=== PATIENT | female | born 1960 | race Caucasian/White ===

== ENCOUNTER 2017-04-20 13:37 | Emergency (ER) | payer OTHER ==
[~2017-04-20] VITALS: Ht 162.5 cm; Wt 59.9 kg
[~2017-04-20 13:37] MED LIST: ANAPROX DS550 MG PO; ARMOUR THYROID15 MG PO; ARMOUR THYROID30 MG PO; ARMOUR THYROID60 MG PO; ATIVAN1 MG PO; AVONEX30 MCG/0.5 MR; Amitriptyline H10 MG PO; BACTRIM DS 8001 TA1 PO; BANOPHEN50 MG PO; BENADRYL ALLERG25 M5 PO; CALCIUM W/VITAM1 TAB PO; CELEXA10 MG PO; CITALOPRAM20 MG PO; CLARITIN10 MG PO; CORDROL20 MG PO; Copaxone 20M20 MG/ML IM; DECADRON4 M1 PO; DICLOFENAC SOD75 MG PO; FENTANYL12 MCG/HR TD; FIORINAL 325 MG1 CAP PO; FLAGYL500 MG PO; FLEXERIL10 MG PO; GABAPENTIN300 MG PO; GABARONE300 MG PO; HYDROMORPHONE2 MG PO; KEFLEX500 MG PO; LEVSIN0.125 M1 SL; LOMOTIL 0.025 M1 TA1 PO; LOMOTIL 0.025 M1 TAB PO; LYRICA75 M1 PO; MIACALCIN SPRAY1 EA NAS; MIACALCIN200 IU/ACT NS; MOTRIN800 MG PO; NAPROSYN500 MG PO; NEURONTIN800 MG PO; OMEPRAZOLE20 M2 PO; OXYBUTYNIN10 MG PO; OXYCODONE HCL10 M1 PO; PERCOCET 325 MG1 TA3 PO; PHENERGAN25 MG RC; PREDNISONE20 M1 PO; PREDNISONE5 MG PO; PRILOSEC40 MG PO; PROPRANOLOL HCL40 M1 PO; SYNTHROID,LEVO75 MCG PO; Synthroid,Lev100 MCG PO; TECFIDERA240 M1 PO; TRAMADOL HCL50 MG PO; VICODIN 500 MG-1 TAB PO; VITAMIN B12 1541 TAB PO; VITAMIN D400 UNI1 PO; VOLTAREN11 TP; VOLTAREN75 MG PO; ZANTAC150 MG PO; ZOFRAN ODT4 MG SL; ZOFRAN4 MG PO
[2017-04-20] MEDS ORDERED: MORPHINE SULFAT15 M7 PO (13:54)
[2017-04-20] MEDS ORDERED: ACETAMINOPHEN/O1 TA1 PO (13:55)
[2017-04-20 13:56] VITALS: BP 123/83
[2017-04-20 14:26] LABS: BILIRUBIN 1+ (NEGATIVE); BLOOD NEGATIVE (NEGATIVE); CLARITY SL CLOUDY (CLEAR); COLOR YELLOW (YELLOW); GLUCOSE NEGATIVE (NEGATIVE); KETONE NEGATIVE (NEGATIVE); LEUKO ESTERASE NEGATIVE (NEGATIVE); NITRITE NEGATIVE (NEGATIVE); PROTEIN NEGATIVE (NEGATIVE); SPECIFIC GRAVITY 1.025 (1.005-1.030); UROBILINOGEN 0.2 E.U./dl (0.2-1.0)
[2017-04-20 14:34] LABS: BACTERIA 2+; RBC 0-2 rbc/hpf (0-2); URINE REFLEX COMMENT YES (NO)
[2017-04-20] MEDS ORDERED: PYRIDIUM100 MG PO (14:42)
== END 2017-04-20 14:53 | disposition home or self-care (01) ==
LOC: ED 13:37
PROVIDERS: Nurse Practitioner Family
DX: R10.9 Unspecified abdominal pain (principal); E03.9 Hypothyroidism, unspecified; M48.00 Spinal stenosis, site unspecified; G89.29 Other chronic pain; G62.9 Polyneuropathy, unspecified; Z90.711 Acquired absence of uterus with remaining cervical stump; Z90.89 Acquired absence of other organs; Z79.899 Other long term (current) drug therapy; Z88.5 Allergy status to narcotic agent; Z88.6 Allergy status to analgesic agent; Z91.030 Bee allergy status; Z88.0 Allergy status to penicillin; Z88.4 Allergy status to anesthetic agent

== ENCOUNTER → 2017-06-20 | Outpatient (CLI) | payer OTHER ==
[~2017-06-20] MED LIST changes: +ACETAMINOPHEN/O1 TA1 PO; +MORPHINE SULFAT15 M7 PO; +PYRIDIUM100 MG PO
== END | disposition home or self-care (01) ==
LOC: RAD 13:00
DX: Z13.820 Encounter for screening for osteoporosis (principal); N95.9 Unspecified menopausal and perimenopausal disorder; M81.0 Age-related osteoporosis without current pathological fracture

== ENCOUNTER → 2017-07-14 | Outpatient (CLI) | payer OTHER | END | disposition home or self-care (01) | LOC: CT 12:53 | DX: Z01.818 Encounter for other preprocedural examination (principal); M48.02 Spinal stenosis, cervical region; M50.222 Other cervical disc displacement at C5-C6 level; M50.223 Other cervical disc displacement at C6-C7 level; M47.892 Other spondylosis, cervical region; M51.24 Other intervertebral disc displacement, thoracic region; N20.0 Calculus of kidney; M47.894 Other spondylosis, thoracic region; M48.06 Spinal stenosis, lumbar region; M51.26 Other intervertebral disc displacement, lumbar region; J43.2 Centrilobular emphysema; J84.10 Pulmonary fibrosis, unspecified; M25.78 Osteophyte, vertebrae; Z90.49 Acquired absence of other specified parts of digestive tract; Z90.710 Acquired absence of both cervix and uterus ==

== ENCOUNTER 2017-07-19 13:20 | Emergency (ER) | payer OTHER ==
[~2017-07-19] VITALS: Ht 165.1 cm; Wt 61.2 kg
[2017-07-19 13:23] VITALS: BP 140/90
[2017-07-19] MEDS ORDERED: BACTRIM 400-801 EACH PO (14:01)
[2017-07-20] MEDS ORDERED: VALTREX1000 MG PO (16:48)
[2017-07-20] MEDS ORDERED: PREDNISONE50 MG PO (16:48)
== END 2017-07-19 14:09 | disposition home or self-care (01) ==
LOC: ED 13:20
DX: L73.8 Other specified follicular disorders (principal); L02.11 Cutaneous abscess of neck; G89.29 Other chronic pain; F17.200 Nicotine dependence, unspecified, uncomplicated; Z90.711 Acquired absence of uterus with remaining cervical stump; Z98.890 Other specified postprocedural states; Z90.89 Acquired absence of other organs; Z79.899 Other long term (current) drug therapy; Z88.0 Allergy status to penicillin; Z88.5 Allergy status to narcotic agent; Z91.030 Bee allergy status; Z88.6 Allergy status to analgesic agent

== ENCOUNTER 2017-07-20 09:39 | Emergency (ER) | payer OTHER ==
[~2017-07-20] VITALS: Ht 165.1 cm; Wt 61.2 kg
[~2017-07-20 09:39] MED LIST changes: +BACTRIM 400-801 EACH PO
[2017-07-20 09:52] VITALS: BP 131/87
[2017-07-20 10:28] LABS: BASO % 0.3 % (0.0-1.0); EOS # 0.2 10*3/uL (0.0-0.4); EOS % 1.4 % (1.0-4.0); HEMATOCRIT 46.3 % (37.0-47.0); LYMPH # 1.3 10*3/uL (1.3-4.4); LYMPH % 10.5 % (27.0-41.0); MEAN CELL VOLUME 97.3 fl (81.0-99.0); MEAN CORPUSCULAR HGB 31.5 pg (27.0-31.0); MEAN CORPUSCULAR HGB CONC 32.4 g/dl (33.0-37.0); MEAN PLATELET VOLUME 9.7 fl (9.6-12.3); MONO # 1.1 10*3/uL (0.1-1.0); MONO % 8.4 % (3.0-9.0); NEUT % 78.9 % (47.0-73.0); PLATELET COUNT AUTOMATED 241 10*3/uL (130-400); RED BLOOD COUNT 4.76 10*6/uL (4.10-5.10); RED CELL DISTRI WIDTH 13.9 % (0-14.5); WHITE BLOOD COUNT 12.7 10*3/uL (4.8-10.8)
[2017-07-20 10:36] LABS: ACT PARTIAL THROMBO TIME 26.9 SECONDS (20.8-31.5); INTERNATIONAL NORM RATIO 0.9 (2.0-3.5)
[2017-07-20 10:44] LABS: ALBUMIN 3.7 gm/dl (3.1-4.5); ALKALINE PHOSPHATASE 108 U/L (45-117); BUN 8 mg/dl (7-24); CHLORIDE 105 mmol/L (98-107); CKMB < 0.5 ng/ml (0.5-3.6); CPK 50 U/L (26-192); CREATININE 0.77 mg/dL (0.55-1.02); LIPASE 130 U/L (73-393); MAGNESIUM 2.3 mg/dL (1.5-2.1); POTASSIUM 4.4 mmol/L (3.5-5.1); SGOT/AST 13 IU/L (3-35); SGPT/ALT 16 U/L (12-78); SODIUM 139 mmol/L (136-145); TOTAL PROTEIN 7.5 gm/dL (6.4-8.2); TROPONIN I < 0.015 ng/ml (<0.045)
[2017-07-20] MEDS ORDERED: PREDNISONE50 MG PO (16:48)
[2017-07-20] MEDS ORDERED: VALTREX1000 MG PO (16:48)
== END 2017-07-20 17:29 | disposition home or self-care (01) ==
LOC: ED 09:39
PROVIDERS: Emergency Medicine
DX: B02.8 Zoster with other complications (principal); H10.33 Unspecified acute conjunctivitis, bilateral; G89.29 Other chronic pain; E03.9 Hypothyroidism, unspecified; G35 Multiple sclerosis; G62.9 Polyneuropathy, unspecified; M48.00 Spinal stenosis, site unspecified; G56.03 Carpal tunnel syndrome, bilateral upper limbs; F17.200 Nicotine dependence, unspecified, uncomplicated; Z90.711 Acquired absence of uterus with remaining cervical stump; Z98.890 Other specified postprocedural states; Z79.899 Other long term (current) drug therapy; Z88.0 Allergy status to penicillin; Z88.5 Allergy status to narcotic agent; Z91.030 Bee allergy status; Z88.6 Allergy status to analgesic agent

== ENCOUNTER → 2017-09-01 | Outpatient (CLI) | payer OTHER ==
[~2017-09-01] MED LIST changes: +PREDNISONE50 MG PO; +VALTREX1000 MG PO
[2017-09-01 15:13] LABS: BASO # 0.1 10*3/uL (0.0-0.1); BASO % 0.6 % (0.0-1.0); EOS # 0.2 10*3/uL (0.0-0.4); EOS % 1.9 % (1.0-4.0); HEMATOCRIT 45.4 % (37.0-47.0); HEMOGLOBIN 14.8 g/dl (12.0-16.0); LYMPH # 2.4 10*3/uL (1.3-4.4); LYMPH % 31.5 % (27.0-41.0); MEAN CELL VOLUME 98.1 fl (81.0-99.0); MEAN CORPUSCULAR HGB CONC 32.6 g/dl (33.0-37.0); MEAN PLATELET VOLUME 8.8 fl (9.6-12.3); MONO # 0.5 10*3/uL (0.1-1.0); MONO % 6.6 % (3.0-9.0); NEUT # 4.6 10*3/uL (2.3-7.9); NEUT % 59.1 % (47.0-73.0); PLATELET COUNT AUTOMATED 313 10*3/uL (130-400); RED BLOOD COUNT 4.63 10*6/uL (4.10-5.10); RED CELL DISTRI WIDTH 14.3 % (0-14.5); WHITE BLOOD COUNT 7.7 10*3/uL (4.8-10.8)
[2017-09-01 15:19] LABS: BILIRUBIN NEGATIVE (NEGATIVE); BLOOD NEGATIVE (NEGATIVE); CLARITY CLEAR (CLEAR); COLOR YELLOW (YELLOW); GLUCOSE NEGATIVE (NEGATIVE); KETONE NEGATIVE (NEGATIVE); LEUKO ESTERASE NEGATIVE (NEGATIVE); NITRITE NEGATIVE (NEGATIVE); PH 5.5 (5.0-9.0); SPECIFIC GRAVITY 1.015 (1.005-1.030); UROBILINOGEN 0.2 E.U./dl (0.2-1.0)
[2017-09-01 15:22] LABS: ACT PARTIAL THROMBO TIME 27.2 SECONDS (20.8-31.5)
[2017-09-01 15:28] LABS: ALBUMIN 3.9 gm/dl (3.1-4.5); ALKALINE PHOSPHATASE 107 U/L (45-117); BUN 8 mg/dl (7-24); CHLORIDE 105 mmol/L (98-107); CREATININE 0.64 mg/dL (0.55-1.02); POTASSIUM 4.3 mmol/L (3.5-5.1); SGOT/AST 16 IU/L (3-35); SGPT/ALT 19 U/L (12-78); SODIUM 140 mmol/L (136-145); TOTAL PROTEIN 7.6 gm/dL (6.4-8.2)
[2017-09-01 15:37] LABS: RBC 0-2 rbc/hpf (0-2)
[2017-09-01 15:38] LABS: BACTERIA TRACE; WBC 0-2 wbc/hpf (0-5)
== END | disposition home or self-care (01) ==
LOC: LAB 14:50
PROVIDERS: Specialist
DX: Z01.818 Encounter for other preprocedural examination (principal); M54.5 Low back pain; G89.29 Other chronic pain; R79.1 Abnormal coagulation profile

== ENCOUNTER 2017-09-12 15:57 | Emergency (ER) | payer OTHER ==
[~2017-09-12] VITALS: Wt 61.2 kg
[2017-09-12] MEDS ORDERED: PERCOCET 10-321 EACH PO (16:18)
[2017-09-12 16:58] LABS: BASO # 0.1 10*3/uL (0.0-0.1); BASO % 0.8 % (0.0-1.0); EOS # 0.4 10*3/uL (0.0-0.4); EOS % 5.5 % (1.0-4.0); HEMATOCRIT 40.8 % (37.0-47.0); HEMOGLOBIN 13.5 g/dl (12.0-16.0); LYMPH # 1.9 10*3/uL (1.3-4.4); LYMPH % 23.8 % (27.0-41.0); MEAN CORPUSCULAR HGB 32.8 pg (27.0-31.0); MEAN CORPUSCULAR HGB CONC 33.1 g/dl (33.0-37.0); MONO # 0.8 10*3/uL (0.1-1.0); MONO % 10.1 % (3.0-9.0); NEUT # 4.7 10*3/uL (2.3-7.9); NEUT % 59.3 % (47.0-73.0); PLATELET COUNT AUTOMATED 315 10*3/uL (130-400); RED BLOOD COUNT 4.12 10*6/uL (4.10-5.10); RED CELL DISTRI WIDTH 14.8 % (0-14.5); WHITE BLOOD COUNT 7.9 10*3/uL (4.8-10.8)
[2017-09-12 17:13] LABS: ALBUMIN 3.4 gm/dl (3.1-4.5); BUN 8 mg/dl (7-24); CHLORIDE 106 mmol/L (98-107); CREATININE 0.63 mg/dL (0.55-1.02); POTASSIUM 4.8 mmol/L (3.5-5.1); SGOT/AST 15 IU/L (3-35); SGPT/ALT 20 U/L (12-78); SODIUM 141 mmol/L (136-145)
[2017-09-12 17:16] LABS: ALKALINE PHOSPHATASE 85 U/L (45-117); TROPONIN I < 0.015 ng/ml (<0.045)
[2017-09-12 18:13] VITALS: BP 135/78
== END 2017-09-12 19:07 | disposition home or self-care (01) ==
LOC: ED 15:57
PROVIDERS: Nurse Practitioner Family
DX: G89.29 Other chronic pain (principal); R07.81 Pleurodynia; F17.200 Nicotine dependence, unspecified, uncomplicated; Z98.890 Other specified postprocedural states; Z90.711 Acquired absence of uterus with remaining cervical stump; Z79.899 Other long term (current) drug therapy; Z88.0 Allergy status to penicillin; Z88.4 Allergy status to anesthetic agent; Z88.5 Allergy status to narcotic agent; Z91.030 Bee allergy status; Z88.6 Allergy status to analgesic agent

== ENCOUNTER 2017-09-22 17:56 | Emergency (ER) | payer OTHER ==
[~2017-09-22] VITALS: Ht 165.1 cm; Wt 61.2 kg
[~2017-09-22 17:56] MED LIST changes: +PERCOCET 10-321 EACH PO
[2017-09-22 18:05] VITALS: BP 123/79
[2017-09-22 18:46] LABS: BASO # 0.1 10*3/uL (0.0-0.1); BASO % 0.9 % (0.0-1.0); EOS # 0.4 10*3/uL (0.0-0.4); EOS % 3.5 % (1.0-4.0); HEMATOCRIT 43.2 % (37.0-47.0); LYMPH # 2.9 10*3/uL (1.3-4.4); LYMPH % 28.3 % (27.0-41.0); MEAN CELL VOLUME 99.5 fl (81.0-99.0); MEAN CORPUSCULAR HGB 32.3 pg (27.0-31.0); MEAN CORPUSCULAR HGB CONC 32.4 g/dl (33.0-37.0); MEAN PLATELET VOLUME 9.4 fl (9.6-12.3); MONO # 0.9 10*3/uL (0.1-1.0); MONO % 8.6 % (3.0-9.0); NEUT # 6.1 10*3/uL (2.3-7.9); NEUT % 58.4 % (47.0-73.0); PLATELET COUNT AUTOMATED 345 10*3/uL (130-400); RED BLOOD COUNT 4.34 10*6/uL (4.10-5.10); RED CELL DISTRI WIDTH 14.6 % (0-14.5); WHITE BLOOD COUNT 10.4 10*3/uL (4.8-10.8)
[2017-09-22 19:01] LABS: ALBUMIN 3.8 gm/dl (3.1-4.5); ALKALINE PHOSPHATASE 82 U/L (45-117); BUN 18 mg/dl (7-24); CHLORIDE 104 mmol/L (98-107); CREATININE 0.74 mg/dL (0.55-1.02); POTASSIUM 4.8 mmol/L (3.5-5.1); SGOT/AST 15 IU/L (3-35); SGPT/ALT 21 U/L (12-78); SODIUM 139 mmol/L (136-145); TOTAL PROTEIN 7.3 gm/dL (6.4-8.2)
[2017-09-22] MEDS ORDERED: DOXYCYCLINE100 M3 PO (19:36)
== END 2017-09-22 19:40 | disposition left against medical advice (07) ==
LOC: ED 17:56
PROVIDERS: Nurse Practitioner Family
DX: Z48.01 Encounter for change or removal of surgical wound dressing (principal); G89.29 Other chronic pain; F17.200 Nicotine dependence, unspecified, uncomplicated; G62.9 Polyneuropathy, unspecified; E03.9 Hypothyroidism, unspecified; Z79.899 Other long term (current) drug therapy; Z90.711 Acquired absence of uterus with remaining cervical stump; Z98.890 Other specified postprocedural states; Z91.030 Bee allergy status; Z88.6 Allergy status to analgesic agent; Z88.5 Allergy status to narcotic agent; Z88.4 Allergy status to anesthetic agent; Z88.0 Allergy status to penicillin

== ENCOUNTER 2017-09-29 14:49 | Emergency (ER) | payer OTHER ==
[~2017-09-29] VITALS: Ht 165.1 cm; Wt 61.2 kg
[~2017-09-29 14:49] MED LIST changes: +DOXYCYCLINE100 M3 PO
[2017-09-29 15:11] VITALS: BP 134/80
[2017-09-29] MEDS ORDERED: MIRALAX POWDER17 G1 PO (17:07)
== END 2017-09-29 17:29 | disposition home or self-care (01) ==
LOC: ED 14:49
DX: G89.29 Other chronic pain (principal); K59.00 Constipation, unspecified; Z88.0 Allergy status to penicillin; Z91.030 Bee allergy status; Z79.899 Other long term (current) drug therapy

== ENCOUNTER → 2017-10-19 | Outpatient (CLI) | payer OTHER ==
[~2017-10-19] MED LIST changes: +MIRALAX POWDER17 G1 PO
== END ==
LOC: CT 12:42
DX: M54.6 Pain in thoracic spine (principal); Z96.9 Presence of functional implant, unspecified

== ENCOUNTER → 2017-10-30 | Outpatient (CLI) | payer OTHER | LOC: CT 09:40 | DX: J43.8 Other emphysema (principal); K76.89 Other specified diseases of liver; Z90.49 Acquired absence of other specified parts of digestive tract; Z90.710 Acquired absence of both cervix and uterus ==

== ENCOUNTER 2017-11-01 16:45 | Emergency (ER) | payer OTHER ==
[~2017-11-01] VITALS: Ht 165.1 cm; Wt 61.2 kg
[2017-11-01 16:57] VITALS: BP 117/96
== END 2017-11-01 17:56 | disposition home or self-care (01) ==
LOC: ED 16:45
DX: B02.9 Zoster without complications (principal); G89.29 Other chronic pain; R10.9 Unspecified abdominal pain; F17.200 Nicotine dependence, unspecified, uncomplicated; Z88.0 Allergy status to penicillin; Z88.6 Allergy status to analgesic agent; Z91.030 Bee allergy status; Z88.8 Allergy status to other drugs, medicaments and biological substances; Z88.4 Allergy status to anesthetic agent; Z79.899 Other long term (current) drug therapy

== ENCOUNTER 2017-11-19 06:27 | Emergency (ER) | payer OTHER ==
[~2017-11-19] VITALS: Ht 165.1 cm; Wt 61.2 kg
[2017-11-19] MEDS ORDERED: MORPHINE SULFAT15 MG PO (06:41)
[2017-11-19 08:57] LABS: BASO # 0.1 10*3/uL (0.0-0.1); BASO % 0.7 % (0.0-1.0); EOS # 0.3 10*3/uL (0.0-0.4); EOS % 3.3 % (1.0-4.0); HEMATOCRIT 43.5 % (37.0-47.0); HEMOGLOBIN 14.7 g/dl (12.0-16.0); LYMPH # 3.2 10*3/uL (1.3-4.4); MEAN CELL VOLUME 96.9 fl (81.0-99.0); MEAN CORPUSCULAR HGB 32.7 pg (27.0-31.0); MEAN CORPUSCULAR HGB CONC 33.8 g/dl (33.0-37.0); MEAN PLATELET VOLUME 9.5 fl (9.6-12.3); MONO # 0.9 10*3/uL (0.1-1.0); NEUT # 3.7 10*3/uL (2.3-7.9); NEUT % 45.8 % (47.0-73.0); PLATELET COUNT AUTOMATED 298 10*3/uL (130-400); RED BLOOD COUNT 4.49 10*6/uL (4.10-5.10); RED CELL DISTRI WIDTH 13.5 % (0-14.5); WHITE BLOOD COUNT 8.2 10*3/uL (4.8-10.8)
[2017-11-19 09:04] VITALS: BP 136/86
[2017-11-19 09:12] LABS: ALBUMIN 3.8 gm/dl (3.1-4.5); ALKALINE PHOSPHATASE 101 U/L (45-117); BUN 12 mg/dl (7-24); CHLORIDE 105 mmol/L (98-107); CREATININE 0.62 mg/dL (0.55-1.02); POTASSIUM 4.2 mmol/L (3.5-5.1); SGOT/AST 17 IU/L (3-35); SGPT/ALT 18 U/L (12-78); SODIUM 141 mmol/L (136-145); TOTAL PROTEIN 7.4 gm/dL (6.4-8.2)
== END 2017-11-19 09:28 | disposition short-term general hospital (02) ==
LOC: ED 06:27
PROVIDERS: Emergency Medicine
DX: T85.192A Other mechanical complication of implanted electronic neurostimulator of spinal cord electrode (lead), initial encounter (principal); E03.9 Hypothyroidism, unspecified; G62.9 Polyneuropathy, unspecified; F17.200 Nicotine dependence, unspecified, uncomplicated; Z88.0 Allergy status to penicillin; Z88.6 Allergy status to analgesic agent; Z88.8 Allergy status to other drugs, medicaments and biological substances; Z91.030 Bee allergy status; Z88.4 Allergy status to anesthetic agent; Z79.899 Other long term (current) drug therapy

== ENCOUNTER → 2018-09-24 | Outpatient (CLI) | payer OTHER ==
[~2018-09-24] MED LIST changes: +MORPHINE SULFAT15 MG PO
[2018-09-24 13:49] LABS: BASO # 0.1 10*3/uL (0.0-0.1); BASO % 0.6 % (0.0-1.0); EOS # 0.2 10*3/uL (0.0-0.4); HEMATOCRIT 45.3 % (37.0-47.0); HEMOGLOBIN 14.7 g/dl (12.0-16.0); LYMPH # 1.9 10*3/uL (1.3-4.4); LYMPH % 20.5 % (27.0-41.0); MEAN CELL VOLUME 99.1 fl (81.0-99.0); MEAN CORPUSCULAR HGB 32.2 pg (27.0-31.0); MEAN CORPUSCULAR HGB CONC 32.5 g/dl (33.0-37.0); MEAN PLATELET VOLUME 9.1 fl (9.6-12.3); MONO # 0.6 10*3/uL (0.1-1.0); MONO % 5.9 % (3.0-9.0); NEUT # 6.6 10*3/uL (2.3-7.9); NEUT % 70.7 % (47.0-73.0); PLATELET COUNT AUTOMATED 286 10*3/uL (130-400); RED BLOOD COUNT 4.57 10*6/uL (4.10-5.10); RED CELL DISTRI WIDTH 13.9 % (0-14.5); WHITE BLOOD COUNT 9.3 10*3/uL (4.8-10.8)
[2018-09-24 13:59] LABS: ALBUMIN 3.8 gm/dl (3.1-4.5); ALKALINE PHOSPHATASE 102 U/L (45-117); BUN 12 mg/dl (7-24); CHLORIDE 107 mmol/L (98-107); CREATININE 0.61 mg/dL (0.55-1.02); POTASSIUM 4.4 mmol/L (3.5-5.1); SGOT/AST 18 IU/L (3-35); SGPT/ALT 23 U/L (12-78); SODIUM 142 mmol/L (136-145); TOTAL PROTEIN 7.4 gm/dL (6.4-8.2)
[2018-09-25 08:13] LABS: HEPATITIS B SURFACE AG Negative (Negative); HEPATITIS C VIRUS ANTIBODY <0.1 s/co (0.0-0.9)
[2018-09-27 21:10] LABS: TB1 Ag VALUE 0.03 IU/mL (.)
== END | disposition home or self-care (01) ==
LOC: LAB 12:54
PROVIDERS: Specialist
DX: M18.0 Bilateral primary osteoarthritis of first carpometacarpal joints (principal); L40.59 Other psoriatic arthropathy; L40.0 Psoriasis vulgaris

== ENCOUNTER → 2020-06-10 | Outpatient (CLI) | payer OTHER | END | disposition home or self-care (01) | LOC: COVID19 15:59 | DX: R50.9 Fever, unspecified (principal); Z20.828 Contact with and (suspected) exposure to other viral communicable diseases ==

== ENCOUNTER → 2020-08-19 | Outpatient (CLI) | payer OTHER ==
[~2020-08-19] MED LIST changes: +ATARAX,VISTARIL50 MG PO
== END | disposition home or self-care (01) ==
LOC: COVID19 03:41
PROVIDERS: ATTEND Family Medicine
DX: Z20.828 Contact with and (suspected) exposure to other viral communicable diseases (principal)

== ENCOUNTER 2020-08-22 14:38 | Emergency (ER) | payer OTHER ==
[~2020-08-22] VITALS: Ht 165.1 cm; Wt 47.6 kg
[~2020-08-22 14:38] MED LIST changes: -ATARAX,VISTARIL50 MG PO
[2020-08-22 14:53] VITALS: BP 144/81
[2020-08-22] MEDS ORDERED: PREDNISONE20 M1 PO ×3 (16:33→16:47)
[2020-08-22] MEDS ORDERED: ATARAX,VISTARIL50 MG PO ×3 (16:33→16:47)
== END 2020-08-22 16:42 | disposition home or self-care (01) ==
LOC: ED 14:38
DX: L50.9 Urticaria, unspecified (principal); K21.9 Gastro-esophageal reflux disease without esophagitis; M19.90 Unspecified osteoarthritis, unspecified site; Z88.0 Allergy status to penicillin; Z88.8 Allergy status to other drugs, medicaments and biological substances; Z79.899 Other long term (current) drug therapy; Z88.5 Allergy status to narcotic agent; G43.909 Migraine, unspecified, not intractable, without status migrainosus

== ENCOUNTER 2021-10-27 14:57 | Emergency (ER) | payer OTHER ==
[~2021-10-27] VITALS: Wt 44.0 kg
[~2021-10-27 14:57] MED LIST changes: +ATARAX,VISTARIL50 MG PO
[2021-10-27 16:01] LABS: BILIRUBIN Negative (Negative); BLOOD 1+ (Negative); CLARITY Clear (Clear); COLOR Yellow (Yellow); GLUCOSE Negative (Negative); KETONE Trace (Negative); LEUKO ESTERASE Negative (Negative); NITRITE Negative (Negative); SPECIFIC GRAVITY 1.025 (1.001-1.030); UROBILINOGEN 0.2 E.U./dl (0.0-1.0)
[2021-10-27 16:15] LABS: BASO # 0.1 10*3/uL (0.0-0.1); BASO % 0.6 % (0.0-1.0); EOS # 0.1 10*3/uL (0.0-0.4); EOS % 1.2 % (1.0-4.0); HEMATOCRIT 43.7 % (37.0-47.0); LYMPH # 1.7 10*3/uL (1.3-4.4); LYMPH % 20.2 % (27.0-41.0); MEAN CELL VOLUME 97.5 fl (81.0-99.0); MEAN CORPUSCULAR HGB 32.1 pg (27.0-31.0); MEAN PLATELET VOLUME 9.5 fl (9.6-12.3); MONO # 0.8 10*3/uL (0.1-1.0); MONO % 9.4 % (3.0-9.0); NEUT # 5.6 10*3/uL (2.3-7.9); NEUT % 68.2 % (47.0-73.0); PLATELET COUNT AUTOMATED 282 10*3/uL (130-400); RED BLOOD COUNT 4.48 10*6/uL (4.10-5.10); RED CELL DISTRI WIDTH 13.6 % (0-14.5); WHITE BLOOD COUNT 8.2 10*3/uL (4.8-10.8)
[2021-10-27 16:25] LABS: CALCIUM OXALATE CRYSTALS 1+; EPITHELIAL CELLS TNTC; WBC 0-2 wbc/hpf (0-5)
[2021-10-27 16:26] LABS: BACTERIA 2+; MUCOUS 1+
[2021-10-27 16:33] LABS: ALBUMIN 3.5 gm/dl (3.1-4.5); ALKALINE PHOSPHATASE 77 U/L (45-117); BUN 12 mg/dl (7-24); CREATININE 0.49 mg/dL (0.55-1.02); SGOT/AST 10 IU/L (3-35); SGPT/ALT 16 U/L (12-78); TOTAL PROTEIN 6.7 gm/dL (6.4-8.2)
[2021-10-27 16:59] LABS: CHLORIDE 110 mmol/L (98-107); POTASSIUM 4.3 mmol/L (3.5-5.1); SODIUM 143 mmol/L (136-145)
[2021-10-27 18:03] VITALS: BP 125/77
[2021-10-27] MEDS ORDERED: SEPTDS PO (19:58)
== END 2021-10-28 00:04 | disposition home or self-care (01) ==
LOC: ED 14:57
PROVIDERS: Physician Assistant
DX: N39.0 Urinary tract infection, site not specified (principal); M54.16 Radiculopathy, lumbar region; Z88.0 Allergy status to penicillin; Z91.030 Bee allergy status; Z88.6 Allergy status to analgesic agent; Z88.4 Allergy status to anesthetic agent; Z79.899 Other long term (current) drug therapy; F17.200 Nicotine dependence, unspecified, uncomplicated

== ENCOUNTER 2022-02-23 14:34 | Emergency (ER) | payer OTHER ==
[~2022-02-23] VITALS: Ht 162.5 cm; Wt 40.8 kg
[~2022-02-23 14:34] MED LIST changes: +SEPTDS PO
[2022-02-23 14:43] VITALS: BP 146/86
[2022-02-23] MEDS ORDERED: LEVOFLOXACIN750 M2 PO (17:30)
[2022-02-23] MEDS ORDERED: PREDNISONE50 MG PO (17:31)
== END 2022-02-23 21:24 | disposition home or self-care (01) ==
LOC: ED 14:34
DX: J40 Bronchitis, not specified as acute or chronic (principal); F17.200 Nicotine dependence, unspecified, uncomplicated; Z88.0 Allergy status to penicillin; Z91.030 Bee allergy status; Z88.6 Allergy status to analgesic agent; Z88.8 Allergy status to other drugs, medicaments and biological substances; Z79.899 Other long term (current) drug therapy; Z90.710 Acquired absence of both cervix and uterus; Z98.890 Other specified postprocedural states

== ENCOUNTER → 2022-07-07 | Outpatient (CLI) | payer OTHER ==
[~2022-07-07] MED LIST changes: +LEVOFLOXACIN750 M2 PO
[2022-07-07 10:41] LABS: BILIRUBIN Negative (Negative); BLOOD 1+ (Negative); CLARITY Clear (Clear); COLOR Yellow (Yellow); GLUCOSE Negative (Negative); KETONE Negative (Negative); LEUKO ESTERASE Trace (Negative); NITRITE Negative (Negative); SPECIFIC GRAVITY 1.015 (1.001-1.030); UROBILINOGEN 0.2 E.U./dl (0.0-1.0)
[2022-07-07 10:42] LABS: BASO # 0.1 10*3/uL (0.0-0.1); BASO % 0.8 % (0.0-1.0); EOS # 0.2 10*3/uL (0.0-0.4); EOS % 1.7 % (1.0-4.0); HEMATOCRIT 48.7 % (37.0-47.0); LYMPH % 23.6 % (27.0-41.0); MEAN CELL VOLUME 97.4 fl (81.0-99.0); MEAN CORPUSCULAR HGB CONC 32.9 g/dl (33.0-37.0); MEAN PLATELET VOLUME 8.8 fl (9.6-12.3); MONO # 0.6 10*3/uL (0.1-1.0); MONO % 6.4 % (3.0-9.0); NEUT # 5.8 10*3/uL (2.3-7.9); NEUT % 67.3 % (47.0-73.0); PLATELET COUNT AUTOMATED 284 10*3/uL (130-400); RED CELL DISTRI WIDTH 13.3 % (0-14.5); RETICULOCYTE % 0.91 % (0.50-2.50); WHITE BLOOD COUNT 8.7 10*3/uL (4.8-10.8)
[2022-07-07 10:59] LABS: ALKALINE PHOSPHATASE 88 U/L (45-117); BUN 10 mg/dl (7-24); CHLORIDE 106 mmol/L (98-107); CHOLESTEROL 207 mg/dL (<200); CREATININE 0.55 mg/dL (0.55-1.02); GAMMA GLUTAMYL TRANSPEPTIDASE 30 U/L (5-55); IRON 98 ug/dL (50-170); LDL CHOLESTEROL 89 mg/dL (9-159); POTASSIUM 4.6 mmol/L (3.5-5.1); SGOT/AST 19 IU/L (3-35); SGPT/ALT 24 U/L (12-78); SODIUM 140 mmol/L (136-145); T3 UPTAKE 35 % (31-39); THYROXINE (T4) TOTAL 14.3 ug/dl (4.8-13.9); TOTAL PROTEIN 7.4 gm/dL (6.4-8.2); TRIGLYCERIDES 89 mg/dl (<150); URIC ACID 3.7 mg/dL (2.6-6.0)
[2022-07-07 11:36] LABS: VITAMIN D, 25-HYDROXY 9.6 ng/mL (30-100)
[2022-07-07 11:37] LABS: FERRITIN 119.8 ng/mL (10.0-291.0)
[2022-07-07 11:56] LABS: EPITHELIAL CELLS 0-2; WBC 0-2 wbc/hpf (0-5)
[2022-07-08 04:06] LABS: RHEUMATOID FACTOR <10.0 IU/mL (<14.0)
[2022-07-08 13:06] LABS: ANTI-DSDNA ANTIBODIES 1 IU/mL (0-9)
== END | disposition home or self-care (01) ==
LOC: LAB 10:10
PROVIDERS: ATTEND Family Medicine
DX: J43.8 Other emphysema (principal); R79.89 Other specified abnormal findings of blood chemistry; R53.83 Other fatigue; E78.5 Hyperlipidemia, unspecified; R74.8 Abnormal levels of other serum enzymes; E55.9 Vitamin D deficiency, unspecified

== ENCOUNTER → 2022-07-12 | Outpatient (CLI) | payer OTHER | END | disposition home or self-care (01) | LOC: RAD 09:58 | PROVIDERS: ATTEND Family Medicine | DX: M47.812 Spondylosis without myelopathy or radiculopathy, cervical region (principal); M43.8X4 Other specified deforming dorsopathies, thoracic region; M47.814 Spondylosis without myelopathy or radiculopathy, thoracic region; M25.78 Osteophyte, vertebrae; I70.0 Atherosclerosis of aorta; M48.02 Spinal stenosis, cervical region; M19.012 Primary osteoarthritis, left shoulder; M19.011 Primary osteoarthritis, right shoulder ==

== ENCOUNTER → 2022-07-22 | Outpatient (CLI) | payer OTHER | END | disposition home or self-care (01) | LOC: CT 12:21 | PROVIDERS: ATTEND Family Medicine | DX: J43.8 Other emphysema (principal); Z90.49 Acquired absence of other specified parts of digestive tract ==

== ENCOUNTER → 2023-04-25 | Outpatient (CLI) | payer OTHER | END | disposition home or self-care (01) | LOC: EDSTATUS 07:30 → RAD 09:14 | PROVIDERS: ATTEND Family Medicine | DX: S93.601A Unspecified sprain of right foot, initial encounter (principal); S93.401A Sprain of unspecified ligament of right ankle, initial encounter; S90.01XA Contusion of right ankle, initial encounter; S90.31XA Contusion of right foot, initial encounter; M19.071 Primary osteoarthritis, right ankle and foot; M79.89 Other specified soft tissue disorders; X58.XXXA Exposure to other specified factors, initial encounter; Y93.89 Activity, other specified; Y92.89 Other specified places as the place of occurrence of the external cause; Y99.8 Other external cause status ==

== ENCOUNTER → 2023-08-02 | Outpatient (CLI) | payer OTHER | END | disposition home or self-care (01) | LOC: MAMMO 00:41 | PROVIDERS: ATTEND Family Medicine | DX: Z12.31 Encounter for screening mammogram for malignant neoplasm of breast (principal) ==

== ENCOUNTER → 2023-08-07 | Outpatient (CLI) | payer OTHER | END | disposition home or self-care (01) | LOC: RAD 00:24 | PROVIDERS: ATTEND Family Medicine | DX: M81.8 Other osteoporosis without current pathological fracture (principal); N95.1 Menopausal and female climacteric states ==

== ENCOUNTER → 2023-08-10 | Outpatient (CLI) | payer OTHER ==
[2023-08-10 13:30] LABS: BILIRUBIN Negative (Negative); BLOOD 1+ (Negative); CLARITY Clear (Clear); COLOR Yellow (Yellow); GLUCOSE Negative (Negative); KETONE Negative (Negative); LEUKO ESTERASE 2+ (Negative); NITRITE Negative (Negative); PH 5.5 (4.5-8.0); SPECIFIC GRAVITY 1.015 (1.001-1.030); UROBILINOGEN 0.2 E.U./dl (0.0-1.0)
[2023-08-10 13:31] LABS: BASO % 0.5 % (0.0-1.0); EOS # 0.3 10*3/uL (0.0-0.4); EOS % 3.7 % (1.0-4.0); HEMATOCRIT 50.2 % (37.0-47.0); LYMPH # 1.8 10*3/uL (1.3-4.4); LYMPH % 25.2 % (27.0-41.0); MEAN CELL VOLUME 98.4 fl (81.0-99.0); MEAN CORPUSCULAR HGB 31.6 pg (27.0-31.0); MEAN CORPUSCULAR HGB CONC 32.1 g/dl (33.0-37.0); MEAN PLATELET VOLUME 8.9 fl (9.6-12.3); MONO # 0.6 10*3/uL (0.1-1.0); MONO % 8.8 % (3.0-9.0); NEUT # 4.5 10*3/uL (2.3-7.9); NEUT % 61.4 % (47.0-73.0); PLATELET COUNT AUTOMATED 342 10*3/uL (130-400); RED CELL DISTRI WIDTH 14.4 % (0-14.5); RETICULOCYTE % 0.94 % (0.50-2.50); WHITE BLOOD COUNT 7.3 10*3/uL (4.8-10.8)
[2023-08-10 13:52] LABS: BACTERIA 2+; RBC 0-2 rbc/hpf (0-2)
[2023-08-10 14:03] LABS: ALKALINE PHOSPHATASE 86 U/L (46-116); BUN 11 mg/dl (9-23); CHLORIDE 107 mmol/L (98-107); CHOLESTEROL 238 mg/dL (<200); GAMMA GLUTAMYL TRANSPEPTIDASE 25 U/L (0-73); LDL CHOLESTEROL 101 mg/dL (9-159); POTASSIUM 5.8 mmol/L (3.4-5.1); SGPT/ALT 15 U/L (10-49); T3 UPTAKE 24.1 % (22.4-36.7); THYROXINE (T4) TOTAL 10.5 ug/dl (4.5-10.9); TOTAL PROTEIN 7.4 gm/dL (6.0-8.0); TRIGLYCERIDES 87 mg/dl (<150)
[2023-08-10 14:10] LABS: VITAMIN D, 25-HYDROXY 22.7 ng/mL (30-100)
== END | disposition home or self-care (01) ==
LOC: LAB 11:56
PROVIDERS: ATTEND Family Medicine
DX: J43.9 Emphysema, unspecified (principal); R79.89 Other specified abnormal findings of blood chemistry; R53.83 Other fatigue; E78.5 Hyperlipidemia, unspecified; E55.9 Vitamin D deficiency, unspecified; R06.02 Shortness of breath; M47.814 Spondylosis without myelopathy or radiculopathy, thoracic region

== ENCOUNTER 2024-02-25 17:27 | Inpatient (IN) | payer MEDICARE, MEDICAID ==
[~2024-02-25] VITALS: Ht 165.1 cm; Wt 45.4 kg
[2024-02-25] MEDS ORDERED: Albuterol Sulfate 2.5 MG/3 ML VIAL NEB ONE (17:30)
[2024-02-25] MEDS ORDERED: MAGNESIUM SULFATE 50 ML IV ONE (17:35)
[2024-02-25] MEDS ORDERED: AZITHROMYCIN 250 MG TAB PO ONE (17:35)
[2024-02-25] MEDS ORDERED: methylPREDNISolone sod succ 125 MG VIAL IV ONE (17:35)
[2024-02-25 17:41] VITALS: BP 117/72
[2024-02-25 18:00] LABS: BASO # 0.1 10*3/uL (0.0-0.1); BASO % 0.7 % (0.0-1.0); EOS # 0.2 10*3/uL (0.0-0.4); EOS % 1.8 % (1.0-4.0); HEMATOCRIT 52.2 % (37.0-47.0); LYMPH # 2.6 10*3/uL (1.3-4.4); LYMPH % 20.5 % (27.0-41.0); MEAN CELL VOLUME 99.6 fl (81.0-99.0); MEAN CORPUSCULAR HGB 31.1 pg (27.0-31.0); MEAN CORPUSCULAR HGB CONC 31.2 g/dl (33.0-37.0); MEAN PLATELET VOLUME 9.3 fl (9.6-12.3); MONO # 1.3 10*3/uL (0.1-1.0); MONO % 10.3 % (3.0-9.0); NEUT # 8.5 10*3/uL (2.3-7.9); NEUT % 66.5 % (47.0-73.0); PLATELET COUNT AUTOMATED 313 10*3/uL (130-400); RED BLOOD COUNT 5.24 10*6/uL (4.10-5.10); RED CELL DISTRI WIDTH 13.2 % (0-14.5); WHITE BLOOD COUNT 12.7 10*3/uL (4.8-10.8)
[2024-02-25 18:22] LABS: ALKALINE PHOSPHATASE 97 U/L (46-116); BUN 13 mg/dl (9-23); CHLORIDE 105 mmol/L (98-107); POTASSIUM 4.1 mmol/L (3.4-5.1); SGPT/ALT 13 U/L (5-49); TOTAL PROTEIN 7.5 gm/dL (6.0-8.0)
[2024-02-25] MEDS ORDERED: ASPIRIN, CHEWABLE 81 MG TAB PO ONE (18:30)
[2024-02-25] MEDS ORDERED: IOHEXOL 350 MG/ML 100 ML VIAL IV ONE (18:45)
[2024-02-25] MEDS ORDERED: SODIUM CHLORIDE 0.9% 100 ML BAG IV ONE (18:45)
[2024-02-25 19:20] VITALS: BP 100/68
[2024-02-25] MEDS ORDERED: BISACODYL 10 MG SUPP R PRN (20:20)
[2024-02-25] MEDS ORDERED: BISACODYL 5 MG TAB PO PRN (20:20)
[2024-02-25] MEDS ORDERED: ACETAMINOPHEN 325 MG TAB PO PRN (20:20)
[2024-02-25] MEDS ORDERED: TEMAZEPAM 15 MG CAP PO PRN (20:20)
[2024-02-25] MEDS ORDERED: Acetaminophen/Hydrocodone 5 MG/325 MG TABLET PO PRN (20:20)
[2024-02-25] MEDS ORDERED: ACETAMINOPHEN 650 MG SUPP R PRN (20:20)
[2024-02-25] MEDS ORDERED: Magnesium Hydroxide 30 ML UDC PO PRN (20:20)
[2024-02-25] MEDS ORDERED: Ondansetron Hydrochloride 4 MG/2 ML VIAL IV PRN (20:20)
[2024-02-25] MEDS ORDERED: SODIUM CHLORIDE 0.9% 1,000 ML IV ONE ×2 (20:30→22:00)
[2024-02-25] MEDS ORDERED: ATORVASTATIN CALCIUM 80 MG TAB PO SCH (20:35)
[2024-02-25] MEDS ORDERED: Metoprolol Tartrate 25 MG TAB PO SCH (20:35)
[2024-02-25] MEDS ORDERED: Albuterol Sulf/Ipratropium 3 ML VIAL NEB SCH (20:40)
[2024-02-25 21:00] VITALS: BP 136/94
[2024-02-25] MEDS ORDERED: LEVOFLOXACIN 100 ML IV SCH (21:00)
[2024-02-25] MEDS ORDERED: ADVAIR HFA 230-12 GM INH (22:19)
[2024-02-25] MEDS ORDERED: AIRSUPRA 90-810.7 GM INH (22:20)
[2024-02-25] MEDS ORDERED: BUDESONIDE 0.5 MG AMP NEB SCH (22:35)
[2024-02-25] MEDS ORDERED: SODIUM CHLORIDE 0.9% 1,000 ML IV SCH (23:50)
[2024-02-26] VITALS: BP 108/60
[2024-02-26] MEDS ORDERED: Doxycycline Hyclate 100 MG in SODIUM CHLORIDE 0.9% 250 ML IV SCH
[2024-02-26] MEDS ORDERED: Cyclobenzaprine Hydrochlorid 10 MG TAB PO ONE (00:40)
[2024-02-26] MEDS ORDERED: Levothyroxine Sodium 125 MCG TAB PO SCH (06:00)
[2024-02-26] MEDS ORDERED: Pantoprazole Sodium 40 MG TAB PO SCH (06:00)
[2024-02-26 06:23] LABS: BASO % 0.1 % (0.0-1.0); EOS % 0.1 % (1.0-4.0); LYMPH # 0.8 10*3/uL (1.3-4.4); LYMPH % 9.3 % (27.0-41.0); MEAN CELL VOLUME 100.2 fl (81.0-99.0); MEAN PLATELET VOLUME 9.2 fl (9.6-12.3); MONO # 0.4 10*3/uL (0.1-1.0); MONO % 4.3 % (3.0-9.0); NEUT # 7.6 10*3/uL (2.3-7.9); NEUT % 85.8 % (47.0-73.0); PLATELET COUNT AUTOMATED 235 10*3/uL (130-400); RED BLOOD COUNT 4.09 10*6/uL (4.10-5.10); RED CELL DISTRI WIDTH 13.2 % (0-14.5); WHITE BLOOD COUNT 8.9 10*3/uL (4.8-10.8)
[2024-02-26 06:47] LABS: ACT PARTIAL THROMBO TIME 28.6 SECONDS (20.0-32.1)
[2024-02-26 07:02] LABS: VITAMIN D, 25-HYDROXY 18.8 ng/mL (30-100)
[2024-02-26 07:04] LABS: BUN 18 mg/dl (9-23); CHLORIDE 109 mmol/L (98-107); POTASSIUM 4.7 mmol/L (3.4-5.1)
[2024-02-26 08:00] VITALS: BP 94/53
[2024-02-26] MEDS ORDERED: predniSONE 20 MG TAB PO SCH (10:00)
[2024-02-26] MEDS ORDERED: ASPIRIN ENTERIC COATED 81 MG TAB PO SCH (10:00)
[2024-02-26] MEDS ORDERED: Vitamin D 400 IU TAB (10 MCG) PO SCH (10:00)
[2024-02-26] MEDS ORDERED: ADVAIR INH SCH (10:00)
[2024-02-26] MEDS ORDERED: methylPREDNISolone sod succ 40 MG VIAL IV SCH ×2 (10:00)
[2024-02-26] MEDS ORDERED: SODIUM CHLORIDE 0.9% 1,000 ML IV ONE (10:05)
[2024-02-26 11:48] LABS: BILIRUBIN Negative (Negative); BLOOD Negative (Negative); CLARITY Clear (Clear); COLOR Yellow (Yellow); GLUCOSE Negative (Negative); KETONE Negative (Negative); LEUKO ESTERASE Negative (Negative); NITRITE Negative (Negative); PH 5.5 (4.5-8.0); SPECIFIC GRAVITY >= 1.030 (1.001-1.030)
[2024-02-26 11:58] LABS: BACTERIA 1+; MUCOUS 1+
[2024-02-26 12:00] VITALS: BP 112/63
[2024-02-26 16:00] VITALS: BP 102/56
[2024-02-26 20:00] VITALS: BP 114/75
[2024-02-27] VITALS: BP 112/71
[2024-02-27 07:30] LABS: HEMATOCRIT 41.1 % (37.0-47.0); MEAN CELL VOLUME 101.5 fl (81.0-99.0); MEAN CORPUSCULAR HGB 31.9 pg (27.0-31.0); MEAN CORPUSCULAR HGB CONC 31.4 g/dl (33.0-37.0); MEAN PLATELET VOLUME 9.9 fl (9.6-12.3); PLATELET COUNT AUTOMATED 261 10*3/uL (130-400); RED BLOOD COUNT 4.05 10*6/uL (4.10-5.10); RED CELL DISTRI WIDTH 13.2 % (0-14.5); WHITE BLOOD COUNT 18.9 10*3/uL (4.8-10.8)
[2024-02-27] MEDS ORDERED: Benzocaine/Menthol 1 LOZ LOZENGE PO PRN (07:45)
[2024-02-27 07:55] LABS: MANUAL DIFF REFLEX YES
[2024-02-27 08:00] VITALS: BP 125/64
[2024-02-27 08:01] LABS: BUN 14 mg/dl (9-23); CHLORIDE 110 mmol/L (98-107); POTASSIUM 4.9 mmol/L (3.4-5.1)
[2024-02-27 08:03] LABS: CHOLESTEROL 148 mg/dL (<200); LDL CHOLESTEROL 65 mg/dL (9-159); TRIGLYCERIDES 58 mg/dl (<150)
[2024-02-27 08:18] LABS: PLATELET SUFFICIENCY NORMAL (NORMAL); TOTAL CELLS COUNTED 100 #CELLS
[2024-02-27] MEDS ORDERED: SODIUM CHLORIDE Nasal 44 ml bottle NAS SCH (09:00)
[2024-02-27] MEDS ORDERED: GUAIFENESIN 600 MG TAB ER PO SCH (10:00)
[2024-02-27 12:00] VITALS: BP 130/76
[2024-02-27] MEDS ORDERED: Nicotine 14 MG PATCH T SCH (13:25)
[2024-02-27] MEDS ORDERED: methylPREDNISolone sod succ 125 MG VIAL IV SCH (14:00)
[2024-02-27] MEDS ORDERED: SODIUM CHLORIDE Nasal 44 ml bottle NAS PRN (14:24)
[2024-02-27 16:00] VITALS: BP 123/76
[2024-02-27 20:00] VITALS: BP 138/78
[2024-02-28] VITALS: BP 134/73
[2024-02-28 06:45] LABS: HEMATOCRIT 39.1 % (37.0-47.0); MEAN CELL VOLUME 98.5 fl (81.0-99.0); MEAN CORPUSCULAR HGB 31.7 pg (27.0-31.0); MEAN CORPUSCULAR HGB CONC 32.2 g/dl (33.0-37.0); MEAN PLATELET VOLUME 10.1 fl (9.6-12.3); PLATELET COUNT AUTOMATED 235 10*3/uL (130-400); RED BLOOD COUNT 3.97 10*6/uL (4.10-5.10); WHITE BLOOD COUNT 15.7 10*3/uL (4.8-10.8)
[2024-02-28 06:48] LABS: BUN 16 mg/dl (9-23); CHLORIDE 106 mmol/L (98-107); MANUAL DIFF REFLEX YES; POTASSIUM 4.4 mmol/L (3.4-5.1)
[2024-02-28 07:28] LABS: BURR CELLS FEW; PLATELET SUFFICIENCY NORMAL (NORMAL); POLYCHROMASIA SLIGHT; TOTAL CELLS COUNTED 100 #CELLS
[2024-02-28 08:00] VITALS: BP 146/75
[2024-02-28] MEDS ORDERED: Benzocaine/Menthol 1 LOZ LOZENGE PO PRN (11:22)
[2024-02-28 12:00] VITALS: BP 135/70
[2024-02-28] MEDS ORDERED: Albuterol Sulfate 2.5 MG/3 ML VIAL NEB SCH (14:55)
[2024-02-28 16:00] VITALS: BP 133/81
[2024-02-28 20:00] VITALS: BP 153/84
[2024-02-28] MEDS ORDERED: methylPREDNISolone sod succ 40 MG VIAL IV SCH (22:00)
[2024-02-29] VITALS: BP 133/78; BP 153/84
[2024-02-29 06:29] LABS: BASO % 0.1 % (0.0-1.0); LYMPH # 0.9 10*3/uL (1.3-4.4); LYMPH % 5.5 % (27.0-41.0); MEAN CELL VOLUME 99.8 fl (81.0-99.0); MEAN CORPUSCULAR HGB 32.3 pg (27.0-31.0); MEAN CORPUSCULAR HGB CONC 32.3 g/dl (33.0-37.0); MEAN PLATELET VOLUME 9.8 fl (9.6-12.3); MONO # 1.1 10*3/uL (0.1-1.0); MONO % 6.5 % (3.0-9.0); NEUT % 86.7 % (47.0-73.0); PLATELET COUNT AUTOMATED 290 10*3/uL (130-400); RED BLOOD COUNT 4.71 10*6/uL (4.10-5.10); RED CELL DISTRI WIDTH 12.9 % (0-14.5); WHITE BLOOD COUNT 16.1 10*3/uL (4.8-10.8)
[2024-02-29 07:17] LABS: BUN 17 mg/dl (9-23); CHLORIDE 101 mmol/L (98-107)
[2024-02-29 08:00] VITALS: BP 130/88
[2024-02-29] MEDS ORDERED: Ondansetron Hydrochloride 4 MG/2 ML VIAL IV ONE (11:05)
[2024-02-29 12:00] VITALS: BP 126/81
[2024-02-29 16:00] VITALS: BP 131/78
[2024-02-29] MEDS ORDERED: methylPREDNISolone sod succ 40 MG VIAL IV SCH (18:00)
[2024-02-29 20:00] VITALS: BP 145/84
[2024-03-01] VITALS: BP 125/71
[2024-03-01 06:41] LABS: BASO % 0.2 % (0.0-1.0); HEMATOCRIT 40.4 % (37.0-47.0); LYMPH % 8.2 % (27.0-41.0); MEAN CELL VOLUME 98.3 fl (81.0-99.0); MEAN CORPUSCULAR HGB 32.1 pg (27.0-31.0); MEAN CORPUSCULAR HGB CONC 32.7 g/dl (33.0-37.0); MONO # 1.1 10*3/uL (0.1-1.0); MONO % 9.2 % (3.0-9.0); NEUT # 9.8 10*3/uL (2.3-7.9); NEUT % 80.8 % (47.0-73.0); PLATELET COUNT AUTOMATED 235 10*3/uL (130-400); RED BLOOD COUNT 4.11 10*6/uL (4.10-5.10); WHITE BLOOD COUNT 12.2 10*3/uL (4.8-10.8)
[2024-03-01 06:57] LABS: BUN 17 mg/dl (9-23); CHLORIDE 103 mmol/L (98-107); POTASSIUM 4.1 mmol/L (3.4-5.1)
[2024-03-01 08:00] VITALS: BP 140/75
[2024-03-01] MEDS ORDERED: OXYGEN NAS (11:23)
[2024-03-01] MEDS ORDERED: LOPRESSOR25 MG PO (12:04)
[2024-03-01] MEDS ORDERED: ATORVASTATIN CA80 M1 PO (12:04)
[2024-03-01] MEDS ORDERED: DOXYCYCLINE HY100 M3 PO (12:04)
[2024-03-01] MEDS ORDERED: PROAIR DIGIHAL90 MCG INH (12:04)
[2024-03-01] MEDS ORDERED: ASPIRIN ADULT L81 M2 PO (12:04)
[2024-03-01] MEDS ORDERED: PREDNISONE10 MG PO (12:04)
[2024-03-01] MEDS ORDERED: NICODERM CQ1 EAC1 T (12:04)
== END 2024-03-01 13:03 | disposition home or self-care (01) | DRG 871 ==
LOC: ED 17:27 → EDHOLD 18:48 → 4E 18:48
PROVIDERS: Emergency Medicine; Family Medicine; Internal Medicine Cardiovascular Disease; Student in an Organized Health Care Education/Training Program; ADMIT Family Medicine; ATTEND Family Medicine
DX: A41.9 Sepsis, unspecified organism (principal); I21.A1 Myocardial infarction type 2; J96.21 Acute and chronic respiratory failure with hypoxia; R65.20 Severe sepsis without septic shock; A08.4 Viral intestinal infection, unspecified; E89.0 Postprocedural hypothyroidism; J43.9 Emphysema, unspecified; D75.1 Secondary polycythemia; J98.4 Other disorders of lung; E55.9 Vitamin D deficiency, unspecified; J20.9 Acute bronchitis, unspecified; R61 Generalized hyperhidrosis; G89.29 Other chronic pain; M54.50 Low back pain, unspecified; N31.9 Neuromuscular dysfunction of bladder, unspecified; Z88.6 Allergy status to analgesic agent; Z88.0 Allergy status to penicillin; Z88.8 Allergy status to other drugs, medicaments and biological substances; Z90.711 Acquired absence of uterus with remaining cervical stump; Z81.1 Family history of alcohol abuse and dependence

== ENCOUNTER → 2024-08-19 | Outpatient (CLI) | payer OTHER, MEDICAID ==
[~2024-08-19] MED LIST changes: +ADVAIR HFA 230-12 GM INH; +AIRSUPRA 90-810.7 GM INH; +ASPIRIN ADULT L81 M2 PO; +ATORVASTATIN CA80 M1 PO; +DOXYCYCLINE HY100 M3 PO; +LOPRESSOR25 MG PO; +NICODERM CQ1 EAC1 T; +OXYGEN NAS; +PREDNISONE10 MG PO; +PROAIR DIGIHAL90 MCG INH; +Regadenoson 0.4 MG/5 ML SYR IV ONE; +TRELEGY ELLIPT1 EAC1 INH; +Technetium Tc 99M Tetrofosmi 0.23 MG KIT IJ SCH
== END | disposition home or self-care (01) ==
LOC: CARD 02:04
PROVIDERS: ATTEND Internal Medicine Cardiovascular Disease
DX: I21.4 Non-ST elevation (NSTEMI) myocardial infarction (principal); R94.31 Abnormal electrocardiogram [ECG] [EKG]; R07.9 Chest pain, unspecified; R06.02 Shortness of breath

== ENCOUNTER → 2025-02-27 | Outpatient (CLI) | payer OTHER, MEDICAID ==
[~2025-02-27] MED LIST changes: -Regadenoson 0.4 MG/5 ML SYR IV ONE; -Technetium Tc 99M Tetrofosmi 0.23 MG KIT IJ SCH
== END | disposition home or self-care (01) ==
LOC: US 01:33
PROVIDERS: ATTEND Family Medicine
DX: G57.93 Unspecified mononeuropathy of bilateral lower limbs (principal); I10 Essential (primary) hypertension; R20.0 Anesthesia of skin; R20.2 Paresthesia of skin; Z72.0 Tobacco use

== ENCOUNTER 2025-04-18 05:54 | Emergency (ER) | payer OTHER, MEDICAID | END 2025-04-18 11:05 | LOC: ED 05:54 | DX: I46.9 Cardiac arrest, cause unspecified (principal); R23.0 Cyanosis; R60.0 Localized edema; J44.9 Chronic obstructive pulmonary disease, unspecified; Z88.0 Allergy status to penicillin; Z88.6 Allergy status to analgesic agent; Z91.030 Bee allergy status; Z79.82 Long term (current) use of aspirin; Z79.899 Other long term (current) drug therapy; Z87.891 Personal history of nicotine dependence; Z90.711 Acquired absence of uterus with remaining cervical stump ==